=== PATIENT | female | born 1975 | race Caucasian/White ===

== ENCOUNTER 2020-07-13 01:26 | Inpatient (IN) ==
[2020-07-13] MEDS ORDERED: Isovue-370 500 ML BOTTLE IVP ONE (03:06)
[2020-07-13 04:22] LABS: Bilirubin,Urine Negative (Negative); Blood,Urine Small (Negative); Clarity,Urine Clear (Clear); Color,Urine Light-Yellow (Yellow); Glucose,Urine (UA) Normal (Normal); Ketones,Urine Negative (Negative); Leukocyte Esterase,Urine Trace (Negative); Mucus,Urine Few per lpf (None-Few); Nitrite,Urine Negative (Negative); PH,Urine 6.5 pH Units (5.0-8.0); Protein,Urine Negative (Neg-Trace); RBC,Urine 0-3 per hpf (0-3); Specific Gravity,Urine 1.011 (1.010-1.025); Squamous Epithelial Cell,Urine Moderate per hpf (None-Few); Urobilinogen,Urine Normal (Normal); WBC,Urine 0-3 per hpf (0-3)
[2020-07-13 05:05] LABS: Basophils % 0.2 %; Hematocrit 38.2 % (35.3-44.9); Hemoglobin 12.7 g/dL (11.5-15.4); Immature Granulocytes % 0.4 % (0-4); Lymphocytes # 1.8 K/mcL (0.6-4.6); Lymphocytes % 9.4 %; Mean Corpuscular HGB Conc 33.2 g/dL (31.6-35.5); Mean Corpuscular Hemoglobin 28.5 pg (28.0-33.3); Mean Corpuscular Volume 85.8 fL (83.0-100.0); Mean Platelet Volume 8.9 fL (9.4-12.4); Monocytes # 0.9 K/mcL (0.0-1.3); Monocytes % 4.5 %; Neutrophils # 16.5 K/mcL (1.6-8.9); Platelet Count 224 K/mcL (140-400); Red Blood Count 4.45 M/mcL (3.82-4.97); Red Cell Distribution Width 14.4 % (11.5-14.5); Segmented Neutrophils % 85.5 %
[2020-07-13 05:10] LABS: White Blood Count 19.3 K/mcL (4.3-11.1)
[2020-07-13 05:16] LABS: Alanine Aminotransferase 79 Units/L (7-52); Albumin/Globulin Ratio 1.8 (1.1-2.2); Alkaline Phosphatase 90 Units/L (34-104); Aspartate Amino Transferase 63 Units/L (13-39); BUN/Creatinine Ratio 11 (6-26); Bilirubin,Direct 0.1 mg/dL (0.0-0.2); Bilirubin,Indirect 0.4 mg/dL (0.0-1.0); Bilirubin,Total 0.5 mg/dL (0.3-1.0); Blood Urea Nitrogen 9 mg/dL (6-20); Calcium 9.2 mg/dL (8.6-10.3); Carbon Dioxide 25 mEq/L (23-29); Chloride 104 mEq/L (98-107); Globulin 2.2 g/dL (2.4-3.5); Glucose 126 mg/dL (70-105); Lipase 9 Units/L (11-82); Osmolality,Calculated 282 (280-300); Potassium 4.3 mEq/L (3.5-5.1); Sodium 136 mEq/L (136-145); Total Protein 6.2 g/dL (6.4-8.9); eGFR For African Americans > 60 (> 60); eGFR For Non-African Americans > 60 (> 60)
[2020-07-13] MEDS ORDERED: *HR* FentaNYL (PF) 100 MCG/2 ML VIAL IVP ONE ×3 (05:22→11:26)
[2020-07-13] MEDS ORDERED: 0.9 % Sodium Chloride 1,000 ML IVC ONE ×2 (05:23→08:17)
[2020-07-13] MEDS ORDERED: Ondansetron 4 MG/2 ML VIAL IVP ONE (11:16)
[2020-07-13] MEDS ORDERED: Ondansetron 4 MG/2 ML VIAL IVP PRN (13:35)
[2020-07-13] MEDS: 0.9 % Sodium Chloride 1,000 ML IVC SCH (14:06)
[2020-07-13] MEDS: *HR* LORazepam 2 MG/ML VIAL IVP PRN (14:07)
[2020-07-13] MEDS: Scopolamine Patch 1.5 MG PATCH.TD72 TD SCH (14:08)
[2020-07-13] MEDS: Pantoprazole 40 MG VIAL IVP SCH (14:13)
[2020-07-13] MEDS: Metoclopramide 10 MG/2 ML VIAL IVP SCH ×2 (14:13→18:00)
[2020-07-13] MEDS: Ipratropium/Albuterol Neb 3 ML IH SCH ×4 (15:32→22:22)
[2020-07-13] MEDS: Budesonide/Formoterol 160/4.5 1 PUFF INH IH SCH ×2 (15:33→22:22)
[2020-07-13] MEDS: Ondansetron 4 MG/2 ML VIAL IVP SCH ×2 (16:11→20:47)
[2020-07-13] MEDS: *HR* Heparin 5,000 UNIT/ML VIAL SQ SCH (17:57)
[2020-07-13] MEDS: *HR* Metoprolol 5 MG/5 ML VIAL IVP SCH (17:58)
[2020-07-13] MEDS: Acetaminophen IV 1,000 MG/100 ML BAG IVPB SCH (17:58)
[2020-07-13] MEDS: Ampicillin/Sulbactam 1,500 MG in 0.9 % Sodium Chloride Mini Bag 100 ML IVPB SCH (17:59)
[2020-07-14] MEDS: Acetaminophen IV 1,000 MG/100 ML BAG IVPB SCH ×4 (00:36→17:47)
[2020-07-14] MEDS: 0.9 % Sodium Chloride 1,000 ML IVC SCH (00:36)
[2020-07-14] MEDS: *HR* Metoprolol 5 MG/5 ML VIAL IVP SCH ×4 (00:37→17:47)
[2020-07-14] MEDS: Metoclopramide 10 MG/2 ML VIAL IVP SCH ×4 (00:37→17:50)
[2020-07-14] MEDS: Ampicillin/Sulbactam 1,500 MG in 0.9 % Sodium Chloride Mini Bag 100 ML IVPB SCH ×4 (00:37→15:50)
[2020-07-14] MEDS: Ondansetron 4 MG/2 ML VIAL IVP SCH ×7 (00:39→19:58)
[2020-07-14] MEDS: Ipratropium/Albuterol Neb 3 ML IH SCH ×4 (04:24→22:49)
[2020-07-14] MEDS: *HR* Heparin 5,000 UNIT/ML VIAL SQ SCH ×2 (06:11→15:49)
[2020-07-14] MEDS: *HR* LORazepam 2 MG/ML VIAL IVP PRN ×2 (07:00→21:20)
[2020-07-14 07:38] LABS: Basophils % 0.2 %; Eosinophils # 0.3 K/mcL (0.0-0.6); Eosinophils % 2.4 %; Hematocrit 38.2 % (35.3-44.9); Hemoglobin 11.9 g/dL (11.5-15.4); Immature Granulocytes % 0.5 % (0-4); Lymphocytes # 1.7 K/mcL (0.6-4.6); Lymphocytes % 12.4 %; Mean Corpuscular HGB Conc 31.2 g/dL (31.6-35.5); Mean Corpuscular Hemoglobin 27.1 pg (28.0-33.3); Mean Platelet Volume 9.4 fL (9.4-12.4); Monocytes # 0.9 K/mcL (0.0-1.3); Monocytes % 6.5 %; Neutrophils # 10.7 K/mcL (1.6-8.9); Platelet Count 225 K/mcL (140-400); Red Blood Count 4.39 M/mcL (3.82-4.97); Red Cell Distribution Width 14.8 % (11.5-14.5); White Blood Count 13.8 K/mcL (4.3-11.1)
[2020-07-14 07:58] LABS: BUN/Creatinine Ratio 8 (6-26); Blood Urea Nitrogen 7 mg/dL (6-20); Calcium 8.6 mg/dL (8.6-10.3); Carbon Dioxide 25 mEq/L (23-29); Chloride 106 mEq/L (98-107); Glucose 111 mg/dL (70-105); Magnesium 1.7 mg/dL (1.6-2.6); Osmolality,Calculated 287 (280-300); Potassium 3.6 mEq/L (3.5-5.1); Sodium 139 mEq/L (136-145); eGFR For African Americans > 60 (> 60); eGFR For Non-African Americans > 60 (> 60)
[2020-07-14] MEDS: Pantoprazole 40 MG VIAL IVP SCH (08:36)
[2020-07-14] MEDS: D5% in 0.45% NACL w KCl 20 MEQ/1,000 ML MLS IVC SCH ×2 (10:37→21:05)
[2020-07-14] MEDS: Budesonide/Formoterol 160/4.5 1 PUFF INH IH SCH ×2 (12:04→22:48)
[2020-07-14] MEDS: Simethicone 40 MG/0.6 ML MLS PO PRN (18:51)
[2020-07-15] MEDS: Acetaminophen IV 1,000 MG/100 ML BAG IVPB SCH ×4 (00:12→18:00)
[2020-07-15] MEDS: Metoclopramide 10 MG/2 ML VIAL IVP SCH ×5 (00:13→23:22)
[2020-07-15] MEDS: *HR* Metoprolol 5 MG/5 ML VIAL IVP SCH ×5 (00:13→23:28)
[2020-07-15] MEDS: Ampicillin/Sulbactam 1,500 MG in 0.9 % Sodium Chloride Mini Bag 100 ML IVPB SCH ×5 (00:54→18:53)
[2020-07-15] MEDS: Ondansetron 4 MG/2 ML VIAL IVP SCH ×7 (00:54→23:19)
[2020-07-15 01:11] LABS: Basophils % 0.2 %; Eosinophils # 0.3 K/mcL (0.0-0.6); Eosinophils % 1.9 %; Hematocrit 34.2 % (35.3-44.9); Hemoglobin 10.9 g/dL (11.5-15.4); Immature Granulocytes % 0.7 % (0-4); Lymphocytes % 15.1 %; Mean Corpuscular HGB Conc 31.9 g/dL (31.6-35.5); Mean Corpuscular Hemoglobin 27.5 pg (28.0-33.3); Mean Corpuscular Volume 86.4 fL (83.0-100.0); Mean Platelet Volume 9.5 fL (9.4-12.4); Monocytes # 0.6 K/mcL (0.0-1.3); Monocytes % 4.7 %; Neutrophils # 10.1 K/mcL (1.6-8.9); Platelet Count 216 K/mcL (140-400); Red Blood Count 3.96 M/mcL (3.82-4.97); Red Cell Distribution Width 14.5 % (11.5-14.5); Segmented Neutrophils % 77.4 %
[2020-07-15 01:24] LABS: BUN/Creatinine Ratio 5 (6-26); Blood Urea Nitrogen 4 mg/dL (6-20); Calcium 8.2 mg/dL (8.6-10.3); Carbon Dioxide 23 mEq/L (23-29); Chloride 109 mEq/L (98-107); Glucose 127 mg/dL (70-105); Osmolality,Calculated 286 (280-300); Potassium 3.7 mEq/L (3.5-5.1); Sodium 139 mEq/L (136-145); eGFR For African Americans > 60 (> 60); eGFR For Non-African Americans > 60 (> 60)
[2020-07-15] MEDS: Simethicone 40 MG/0.6 ML MLS PO PRN ×2 (03:34→10:39)
[2020-07-15] MEDS: Ipratropium/Albuterol Neb 3 ML IH SCH ×4 (04:24→23:57)
[2020-07-15] MEDS: *HR* Heparin 5,000 UNIT/ML VIAL SQ SCH ×2 (05:14→18:02)
[2020-07-15] MEDS: D5% in 0.45% NACL w KCl 20 MEQ/1,000 ML MLS IVC SCH ×2 (06:59→19:16)
[2020-07-15] MEDS: Pantoprazole 40 MG VIAL IVP SCH (07:51)
[2020-07-15] MEDS ORDERED: Lidocaine -MPF 1% 5 ML AMPUL INFILT ONE (09:51)
[2020-07-15] MEDS: Budesonide/Formoterol 160/4.5 1 PUFF INH IH SCH ×2 (10:06→23:57)
[2020-07-15] MEDS: *HR* LORazepam 2 MG/ML VIAL IVP PRN (10:29)
[2020-07-15] MEDS ORDERED: *HR* Dextrose 50 % in Water (Vial) 50 ML VIAL IVP PRN (10:30)
[2020-07-15] MEDS ORDERED: Dextrose Gel 15 GM/37.5 ML TUBE PO PRN ×2 (10:30)
[2020-07-15] MEDS ORDERED: D5% in Water 1,000 ML IVC PRN (10:30)
[2020-07-15] MEDS: Baclofen 10 MG TABLET PO SCH ×3 (10:50→20:44)
[2020-07-15 11:19] LABS: Magnesium 1.8 mg/dL (1.6-2.6); Phosphorous 3.7 mg/dL (2.7-4.5)
[2020-07-15] MEDS ORDERED: D10% in Water 500 ML IVC PRN (11:42)
[2020-07-15] MEDS ORDERED: hydrOXYzine pamoate 25 MG CAPSULE PO PRN (12:45)
[2020-07-15] MEDS: Insulin LISPRO 300 UNITS/3 ML VIAL SQ SCH ×3 (12:49→20:51)
[2020-07-15] MEDS: Nicotine 14 MG PATCH.TD24 TD SCH (12:50)
[2020-07-15] MEDS ORDERED: Clinimix E 5%-15% SOLUTION 2,000 ML with MVI, adult with vitamin K 10 ML IVC SCH (17:00)
[2020-07-15] MEDS: OXcarbazepine 150 MG TABLET PO SCH (20:44)
[2020-07-15] MEDS: lamoTRIgine 100 MG TABLET PO SCH (20:45)
[2020-07-15] MEDS: MILNACIPRAN HCL 50 MG PO SCH (20:51)
[2020-07-16] MEDS: Acetaminophen IV 1,000 MG/100 ML BAG IVPB SCH ×4 (00:23→17:04)
[2020-07-16] MEDS: Insulin LISPRO 300 UNITS/3 ML VIAL SQ SCH ×6 (00:32→20:50)
[2020-07-16] MEDS: Ondansetron 4 MG/2 ML VIAL IVP SCH ×4 (04:08→17:07)
[2020-07-16] MEDS: Ipratropium/Albuterol Neb 3 ML IH SCH ×4 (04:22→21:37)
[2020-07-16 04:52] LABS: BUN/Creatinine Ratio 8 (6-26); Blood Urea Nitrogen 5 mg/dL (6-20); Calcium 8.2 mg/dL (8.6-10.3); Carbon Dioxide 22 mEq/L (23-29); Chloride 112 mEq/L (98-107); Glucose 108 mg/dL (70-105); Magnesium 1.7 mg/dL (1.6-2.6); Osmolality,Calculated 288 (280-300); Phosphorous 3.6 mg/dL (2.7-4.5); Potassium 3.8 mEq/L (3.5-5.1); Sodium 140 mEq/L (136-145); eGFR For African Americans > 60 (> 60); eGFR For Non-African Americans > 60 (> 60)
[2020-07-16 04:54] LABS: Basophils % 0.2 %; Eosinophils # 0.6 K/mcL (0.0-0.6); Hematocrit 31.7 % (35.3-44.9); Hemoglobin 9.9 g/dL (11.5-15.4); Immature Granulocytes % 0.6 % (0-4); Lymphocytes # 2.4 K/mcL (0.6-4.6); Lymphocytes % 27.6 %; Mean Corpuscular HGB Conc 31.2 g/dL (31.6-35.5); Mean Corpuscular Hemoglobin 27.1 pg (28.0-33.3); Mean Corpuscular Volume 86.8 fL (83.0-100.0); Mean Platelet Volume 9.6 fL (9.4-12.4); Monocytes # 0.6 K/mcL (0.0-1.3); Monocytes % 6.8 %; Neutrophils # 5.1 K/mcL (1.6-8.9); Platelet Count 219 K/mcL (140-400); Red Blood Count 3.65 M/mcL (3.82-4.97); Red Cell Distribution Width 14.6 % (11.5-14.5); Segmented Neutrophils % 57.8 %; White Blood Count 8.7 K/mcL (4.3-11.1)
[2020-07-16] MEDS: D5% in 0.45% NACL w KCl 20 MEQ/1,000 ML MLS IVC SCH ×2 (06:22→15:33)
[2020-07-16] MEDS: Ampicillin/Sulbactam 1,500 MG in 0.9 % Sodium Chloride Mini Bag 100 ML IVPB SCH ×3 (06:23→17:17)
[2020-07-16] MEDS: *HR* Metoprolol 5 MG/5 ML VIAL IVP SCH ×3 (06:24→17:08)
[2020-07-16] MEDS: *HR* Heparin 5,000 UNIT/ML VIAL SQ SCH ×2 (06:27→17:14)
[2020-07-16] MEDS: Metoclopramide 10 MG/2 ML VIAL IVP SCH ×3 (06:29→17:07)
[2020-07-16] MEDS: OXcarbazepine 150 MG TABLET PO SCH ×2 (07:40→20:52)
[2020-07-16] MEDS: Baclofen 10 MG TABLET PO SCH ×3 (07:40→20:52)
[2020-07-16] MEDS: amLODIPine 5 MG TABLET PO SCH (07:40)
[2020-07-16] MEDS: Nicotine 14 MG PATCH.TD24 TD SCH (07:43)
[2020-07-16] MEDS: Pantoprazole 40 MG VIAL IVP SCH (08:00)
[2020-07-16] MEDS: MILNACIPRAN HCL 50 MG PO SCH ×2 (08:00→20:52)
[2020-07-16] MEDS: Budesonide/Formoterol 160/4.5 1 PUFF INH IH SCH ×2 (10:41→21:37)
[2020-07-16] MEDS: Ondansetron ODT 4 MG TAB.RAPDIS SL SCH ×3 (12:27→20:51)
[2020-07-16] MEDS: Scopolamine Patch 1.5 MG PATCH.TD72 TD SCH (14:36)
[2020-07-16] MEDS ORDERED: Clinimix E 5%-15% SOLUTION 2,000 ML with MVI, adult with vitamin K 10 ML IVC SCH (17:00)
[2020-07-16] MEDS ORDERED: Ondansetron 4 MG/2 ML VIAL IVP PRN (17:54)
[2020-07-16] MEDS: lamoTRIgine 100 MG TABLET PO SCH (20:52)
[2020-07-16] MEDS: *HR* LORazepam 2 MG/ML VIAL IVP PRN (21:47)
[2020-07-17] MEDS: Acetaminophen IV 1,000 MG/100 ML BAG IVPB SCH ×4 (00:04→17:20)
[2020-07-17] MEDS: Insulin LISPRO 300 UNITS/3 ML VIAL SQ SCH ×6 (00:04→20:22)
[2020-07-17] MEDS: *HR* Metoprolol 5 MG/5 ML VIAL IVP SCH ×4 (00:05→17:15)
[2020-07-17] MEDS: Metoclopramide 10 MG/2 ML VIAL IVP SCH ×4 (00:05→17:10)
[2020-07-17] MEDS: Simethicone 40 MG/0.6 ML MLS PO PRN ×2 (00:06→20:07)
[2020-07-17] MEDS: Ondansetron ODT 4 MG TAB.RAPDIS SL SCH ×6 (00:06→20:08)
[2020-07-17] MEDS: Ampicillin/Sulbactam 1,500 MG in 0.9 % Sodium Chloride Mini Bag 100 ML IVPB SCH ×4 (00:06→17:25)
[2020-07-17] MEDS: D5% in 0.45% NACL w KCl 20 MEQ/1,000 ML MLS IVC SCH (01:33)
[2020-07-17] MEDS: Ipratropium/Albuterol Neb 3 ML IH SCH ×4 (03:38→21:33)
[2020-07-17 03:49] LABS: Basophils # 0.1 K/mcL (0.0-0.2); Basophils % 0.6 %; Eosinophils # 0.6 K/mcL (0.0-0.6); Hematocrit 32.5 % (35.3-44.9); Hemoglobin 10.6 g/dL (11.5-15.4); Immature Granulocytes % 0.3 % (0-4); Lymphocytes # 2.5 K/mcL (0.6-4.6); Lymphocytes % 27.8 %; Mean Corpuscular HGB Conc 32.6 g/dL (31.6-35.5); Mean Corpuscular Hemoglobin 28.2 pg (28.0-33.3); Mean Corpuscular Volume 86.4 fL (83.0-100.0); Mean Platelet Volume 9.6 fL (9.4-12.4); Monocytes # 0.6 K/mcL (0.0-1.3); Monocytes % 7.1 %; Neutrophils # 5.1 K/mcL (1.6-8.9); Platelet Count 208 K/mcL (140-400); Red Blood Count 3.76 M/mcL (3.82-4.97); Red Cell Distribution Width 14.5 % (11.5-14.5); Segmented Neutrophils % 57.2 %
[2020-07-17 04:06] LABS: BUN/Creatinine Ratio 9 (6-26); Blood Urea Nitrogen 6 mg/dL (6-20); Calcium 8.1 mg/dL (8.6-10.3); Carbon Dioxide 23 mEq/L (23-29); Chloride 108 mEq/L (98-107); Glucose 99 mg/dL (70-105); Magnesium 1.7 mg/dL (1.6-2.6); Osmolality,Calculated 284 (280-300); Phosphorous 4.5 mg/dL (2.7-4.5); Potassium 3.7 mEq/L (3.5-5.1); Sodium 138 mEq/L (136-145); eGFR For African Americans > 60 (> 60); eGFR For Non-African Americans > 60 (> 60)
[2020-07-17] MEDS: *HR* Heparin 5,000 UNIT/ML VIAL SQ SCH ×2 (05:44→17:30)
[2020-07-17] MEDS: Pantoprazole 40 MG VIAL IVP SCH (09:02)
[2020-07-17] MEDS: amLODIPine 5 MG TABLET PO SCH (09:03)
[2020-07-17] MEDS: OXcarbazepine 150 MG TABLET PO SCH ×2 (09:03→20:08)
[2020-07-17] MEDS: Baclofen 10 MG TABLET PO SCH ×3 (09:03→20:08)
[2020-07-17] MEDS: Nicotine 14 MG PATCH.TD24 TD SCH (09:03)
[2020-07-17] MEDS: MILNACIPRAN HCL 50 MG PO SCH ×2 (09:04→20:07)
[2020-07-17] MEDS: Budesonide/Formoterol 160/4.5 1 PUFF INH IH SCH ×2 (10:57→21:34)
[2020-07-17] MEDS ORDERED: Clinimix E 5%-15% SOLUTION 2,000 ML with MVI, adult with vitamin K 10 ML IVC SCH (17:00)
[2020-07-17] MEDS: lamoTRIgine 100 MG TABLET PO SCH (20:08)
[2020-07-18] MEDS: Acetaminophen IV 1,000 MG/100 ML BAG IVPB SCH ×3 (00:03→12:38)
[2020-07-18] MEDS: *HR* Metoprolol 5 MG/5 ML VIAL IVP SCH ×3 (00:03→12:26)
[2020-07-18] MEDS: Metoclopramide 10 MG/2 ML VIAL IVP SCH ×3 (00:03→12:27)
[2020-07-18] MEDS: Ampicillin/Sulbactam 1,500 MG in 0.9 % Sodium Chloride Mini Bag 100 ML IVPB SCH ×3 (00:04→12:36)
[2020-07-18] MEDS: Ondansetron ODT 4 MG TAB.RAPDIS SL SCH ×4 (00:04→12:37)
[2020-07-18] MEDS: Insulin LISPRO 300 UNITS/3 ML VIAL SQ SCH ×4 (00:31→12:27)
[2020-07-18] MEDS: Ipratropium/Albuterol Neb 3 ML IH SCH ×2 (03:54→10:30)
[2020-07-18 04:12] LABS: Basophils % 0.3 %; Eosinophils # 0.6 K/mcL (0.0-0.6); Eosinophils % 7.1 %; Hemoglobin 10.9 g/dL (11.5-15.4); Immature Granulocytes % 0.6 % (0-4); Lymphocytes # 2.8 K/mcL (0.6-4.6); Lymphocytes % 31.8 %; Mean Corpuscular HGB Conc 32.1 g/dL (31.6-35.5); Mean Corpuscular Hemoglobin 27.4 pg (28.0-33.3); Mean Corpuscular Volume 85.4 fL (83.0-100.0); Mean Platelet Volume 9.7 fL (9.4-12.4); Monocytes # 0.6 K/mcL (0.0-1.3); Monocytes % 6.4 %; Neutrophils # 4.7 K/mcL (1.6-8.9); Platelet Count 229 K/mcL (140-400); Red Blood Count 3.98 M/mcL (3.82-4.97); Red Cell Distribution Width 13.8 % (11.5-14.5); Segmented Neutrophils % 53.8 %; White Blood Count 8.8 K/mcL (4.3-11.1)
[2020-07-18 04:21] LABS: BUN/Creatinine Ratio 12 (6-26); Blood Urea Nitrogen 9 mg/dL (6-20); Calcium 8.8 mg/dL (8.6-10.3); Carbon Dioxide 25 mEq/L (23-29); Chloride 103 mEq/L (98-107); Glucose 108 mg/dL (70-105); Magnesium 1.8 mg/dL (1.6-2.6); Osmolality,Calculated 277 (280-300); Phosphorous 4.4 mg/dL (2.7-4.5); Potassium 3.7 mEq/L (3.5-5.1); Sodium 134 mEq/L (136-145); eGFR For African Americans > 60 (> 60); eGFR For Non-African Americans > 60 (> 60)
[2020-07-18] MEDS: *HR* Heparin 5,000 UNIT/ML VIAL SQ SCH (06:04)
[2020-07-18] MEDS: Simethicone 40 MG/0.6 ML MLS PO PRN (06:06)
[2020-07-18] MEDS: OXcarbazepine 150 MG TABLET PO SCH (08:34)
[2020-07-18] MEDS: Baclofen 10 MG TABLET PO SCH (08:34)
[2020-07-18] MEDS: amLODIPine 5 MG TABLET PO SCH (08:35)
[2020-07-18] MEDS: Nicotine 14 MG PATCH.TD24 TD SCH (08:41)
[2020-07-18] MEDS: MILNACIPRAN HCL 50 MG PO SCH (09:18)
[2020-07-18] MEDS: Pantoprazole 40 MG VIAL IVP SCH (09:18)
[2020-07-18] MEDS: Budesonide/Formoterol 160/4.5 1 PUFF INH IH SCH (10:30)
[2020-07-18 12:14] VITALS: BP 122/85
== END 2020-07-18 15:09 | disposition home or self-care (01) | DRG 392 ==
LOC: 3ANU 01:26 → EMEROOARM 01:26 → 3ANU 13:36
PROVIDERS: ADMIT Surgery; ATTEND Surgery

== ENCOUNTER 2021-06-13 17:39 | Observation (INO) ==
[2021-06-13 18:25] LABS: Basophils % 0.4 %; Eosinophils # 0.3 K/mcL (0.0-0.6); Eosinophils % 3.1 %; Hematocrit 40.3 % (35.3-44.9); Hemoglobin 12.7 g/dL (11.5-15.4); Immature Granulocytes % 0.5 % (0-4); Lymphocytes # 4.3 K/mcL (0.6-4.6); Lymphocytes % 45.9 %; Mean Corpuscular HGB Conc 31.5 g/dL (31.6-35.5); Mean Corpuscular Hemoglobin 26.9 pg (28.0-33.3); Mean Corpuscular Volume 85.4 fL (83.0-100.0); Mean Platelet Volume 9.1 fL (9.4-12.4); Monocytes # 0.5 K/mcL (0.0-1.3); Monocytes % 5.7 %; Neutrophils # 4.2 K/mcL (1.6-8.9); Platelet Count 331 K/mcL (140-400); Red Blood Count 4.72 M/mcL (3.82-4.97); Red Cell Distribution Width 14.6 % (11.5-14.5); Segmented Neutrophils % 44.4 %; White Blood Count 9.4 K/mcL (4.3-11.1)
[2021-06-13 18:35] LABS: Prothrombin Time 10.9 Seconds (9.4-12.1)
[2021-06-13 18:38] LABS: Activated Partial Thrombo Time 33.7 Seconds (26.0-36.0)
[2021-06-13] MEDS ORDERED: Metoclopramide 10 MG/2 ML VIAL IVP STA (18:40)
[2021-06-13] MEDS ORDERED: 0.9 % Sodium Chloride 500 ML IVC ONE (18:40)
[2021-06-13 18:49] LABS: BUN/Creatinine Ratio 9 (6-26); Blood Urea Nitrogen 12 mg/dL (6-20); Calcium 9.7 mg/dL (8.6-10.3); Carbon Dioxide 26 mEq/L (23-29); Chloride 108 mEq/L (98-107); Glucose 102 mg/dL (70-105); Osmolality,Calculated 296 (280-300); Potassium 3.4 mEq/L (3.5-5.1); Sodium 143 mEq/L (136-145); Troponin I < 0.03 ng/mL (< 0.04); eGFR For African Americans 48 (> 60); eGFR For Non-African Americans 40 (> 60)
[2021-06-14] MEDS ORDERED: Dextrose Gel 15 GM/37.5 ML TUBE PO PRN ×2 (03:06)
[2021-06-14] MEDS ORDERED: *HR* Dextrose 50 % in Water (Syg) 50 ML SYRINGE IVP PRN (03:06)
[2021-06-14] MEDS ORDERED: D5% in Water 1,000 ML IVC PRN (03:06)
[2021-06-14] MEDS ORDERED: Aspirin Enteric Coated 81 MG Tablet PO STA (03:08)
[2021-06-14] MEDS ORDERED: Naloxone 0.4 MG/ML INJ IVP PRN (03:21)
[2021-06-14] MEDS ORDERED: Acetaminophen 325 MG TABLET PO PRN (03:21)
[2021-06-14 04:30] LABS: Hematocrit 35.4 % (35.3-44.9); Hemoglobin 11.2 g/dL (11.5-15.4); Mean Corpuscular HGB Conc 31.6 g/dL (31.6-35.5); Mean Corpuscular Hemoglobin 26.9 pg (28.0-33.3); Mean Corpuscular Volume 85.1 fL (83.0-100.0); Mean Platelet Volume 9.3 fL (9.4-12.4); Platelet Count 287 K/mcL (140-400); Red Blood Count 4.16 M/mcL (3.82-4.97); Red Cell Distribution Width 14.6 % (11.5-14.5); White Blood Count 7.8 K/mcL (4.3-11.1)
[2021-06-14 04:42] LABS: BUN/Creatinine Ratio 12 (6-26); Blood Urea Nitrogen 13 mg/dL (6-20); Calcium 8.6 mg/dL (8.6-10.3); Carbon Dioxide 23 mEq/L (23-29); Chloride 110 mEq/L (98-107); Glucose 126 mg/dL (70-105); Magnesium 1.9 mg/dL (1.6-2.6); Osmolality,Calculated 296 (280-300); Potassium 4.1 mEq/L (3.5-5.1); Sodium 142 mEq/L (136-145); eGFR For African Americans > 60 (> 60); eGFR For Non-African Americans 53 (> 60)
[2021-06-14 04:45] LABS: Chol/HDL Ratio 3.3 (0-4.9); Cholesterol 154 mg/dL (< 200); HDL Cholesterol 47 mg/dL (40-59); Iron 24 mcg/dL (50-170); LDL Cholesterol,Calculated 89 mg/dL (< 100); Triglycerides 90 mg/dL (< 150)
[2021-06-14 04:58] LABS: Thyroid Stimulating Hormone 0.367 mcIU/mL (0.340-5.600)
[2021-06-14 05:05] LABS: % Iron Saturation 6 % (15-50); Ferritin < 8 ng/mL (10-120); Transferrin 273 mg/dL (203-362)
[2021-06-14 05:09] LABS: Folate 15.4 ng/mL (3.0-16.0)
[2021-06-14] MEDS ORDERED: hydrOXYzine pamoate 25 MG CAPSULE PO PRN (05:20)
[2021-06-14] MEDS ORDERED: lamoTRIgine 100 MG TABLET PO PRN (05:24)
[2021-06-14 05:33] LABS: Amphetamine Screen,Urine Negative ng/mL (Cutoff=1000); Barbiturate Screen,Urine Negative ng/mL (Cutoff=200); Benzodiazepines Screen,Urine Negative ng/mL (Cutoff=200); Bilirubin,Urine Negative (Negative); Blood,Urine Negative (Negative); Cannabinoid Screen,Urine Negative ng/mL (Cutoff = 50); Clarity,Urine Clear (Clear); Cocaine Screen,Urine Negative ng/mL (Cutoff= 300); Color,Urine Yellow (Yellow); Glucose,Urine (UA) Normal (Normal); Ketones,Urine Negative (Negative); Leukocyte Esterase,Urine Negative (Negative); Nitrite,Urine Negative (Negative); Opiate Screen,Urine Negative ng/mL (Cutoff=300); Phencyclidine Screen,Urine Negative ng/mL (Cutoff=25); Protein,Urine Trace mg/dL (Neg-Trace); Specific Gravity,Urine 1.022 (1.010-1.025); Urobilinogen,Urine Normal (Normal)
[2021-06-14] MEDS: Insulin LISPRO 300 UNITS/3 ML VIAL SUBQ SCH ×3 (05:58→16:30)
[2021-06-14 06:02] LABS: Influenza A PCR Negative (Negative); Influenza B PCR Negative (Negative); Resp. Syncytial Virus PCR Negative (Negative)
[2021-06-14 06:07] LABS: SARS-CoV-2 by PCR (In House) Negative (Negative)
[2021-06-14 06:30] VITALS: O2SAT 99
[2021-06-14] MEDS: Ondansetron 4 MG/2 ML VIAL IVP PRN ×2 (08:23→17:05)
[2021-06-14] MEDS ORDERED: lamoTRIgine 100 MG TABLET PO SCH ×2 (09:00→21:00)
[2021-06-14] MEDS ORDERED: Ketoconazole 2% CRM 15 GM TUBE TP SCH (09:00)
[2021-06-14] MEDS ORDERED: Iron Sucrose Complex 200 MG in 0.9 % Sodium Chloride 100 ML IVPB ONE (09:48)
[2021-06-14 11:02] LABS: Estimated Average Glucose 126 mg/dl
[2021-06-14] MEDS ORDERED: MILNACIPRAN HCL PO SCH ×2 (14:45→18:00)
[2021-06-14] MEDS ORDERED: Hydrocortisone 10 MG TABLET PO SCH (15:00)
[2021-06-14] MEDS ORDERED: Gabapentin 300 MG CAPSULE PO SCH (15:00)
[2021-06-14 16:13] VITALS: BP 127/82; PULSE 73; TEMP 97.8
[2021-06-14] MEDS ORDERED: *HR* LORazepam 0.5 MG TABLET PO SCH (21:00)
[2021-06-14] MEDS ORDERED: AZELASTINE NS SCH (21:00)
[2021-06-14] MEDS ORDERED: FLUTICASONE NS SCH (21:00)
[2021-06-14] MEDS ORDERED: Fluticasone Propionate Nasal 50 MCG/SPRAY BOTTLE NS SCH (21:00)
[2021-06-14] MEDS ORDERED: Budesonide/Formoterol 160/4.5 1 PUFF INH IH SCH (22:00)
[2021-06-15] MEDS ORDERED: dexAMETHasone 4 MG TABLET PO SCH (09:00)
[2021-06-15] MEDS ORDERED: Aspirin Enteric Coated 81 MG Tablet PO SCH (09:00)
[2021-06-15] MEDS ORDERED: Furosemide 20 MG TABLET PO SCH (09:00)
[2021-06-17] MEDS ORDERED: MILNACIPRAN HCL PO SCH (09:00)
[2021-06-24] MEDS ORDERED: MILNACIPRAN HCL PO SCH (09:00)
== END 2021-06-14 18:25 | disposition home or self-care (01) ==
LOC: EMEROOARM 17:39 → 3BNU 17:39
PROVIDERS: ADMIT Internal Medicine; ATTEND Internal Medicine